=== PATIENT | female | born 1970 | race Caucasian/White ===

== ENCOUNTER 2023-02-14 06:58 | Observation (INO) ==
--- NOTE | 2023-01-17 11:33 | PAT Medication Instructions ---
Medication Instructions Date of Service January 17, 2023 Home Medications Medication Instructions Recorded albuterol sulfate 90 mcg/actuation 2 inh inhalation Q6H PRN shortness 08/29/20 aerosol inhaler of breath or wheezing #8.5 grams dicyclomine 20 mg tablet 20 mg PO BID #60 tabs 11/03/21 duloxetine 60 mg capsule,delayed 60 mg PO QAM #30 caps 07/19/22 release diclofenac sodium 75 mg 75 mg PO BID PRN pain #60 tabs 07/28/22 tablet,delayed release buspirone 10 mg tablet 10 mg PO BID #180 tabs 08/27/22 losartan 100 mg tablet 100 mg PO QAM #90 tabs 09/18/22 omeprazole 40 mg capsule,delayed See Rx Instructions .Route 10/19/22 release .COMPLEX #30 caps levothyroxine 50 mcg tablet See Rx Instructions .Route 10/28/22 .COMPLEX #30 tabs alprazolam 0.5 mg tablet 0.5 mg PO BID PRN anxiety #60 tabs 12/30/22 oxycodone-acetaminophen 5 mg-325 0.5 tab PO QID pain #60 tabs 12/30/22 mg tablet ferrous sulfate 325 mg (65 mg iron) tablet 325 mg PO BID albuterol sulfate 90 mcg/actuation aerosol inhaler 2 inh inhalation Q6H PRN shortness of breath or wheezing cholecalciferol (vitamin D3) 25 mcg (1,000 unit) tablet (Vitamin D3) 2,000 unit PO QAM dicyclomine 20 mg tablet 20 mg PO BID duloxetine 60 mg capsule,delayed release 60 mg PO QAM diclofenac sodium 75 mg tablet,delayed release 75 mg PO BID PRN pain buspirone 10 mg tablet 10 mg PO BID losartan 100 mg tablet 100 mg PO QAM omeprazole 40 mg capsule,delayed release See Rx Instructions .Route .COMPLEX levothyroxine 50 mcg tablet See Rx Instructions .Route .COMPLEX alprazolam 0.5 mg tablet 0.5 mg PO BID PRN anxiety oxycodone-acetaminophen 5 mg-325 mg tablet 0.5 tab PO QID pain bupropion HCl 300 mg 24 hr tablet, extended release 300 mg PO QAM hydrochlorothiazide 12.5 mg tablet 25 mg PO QAM mirabegron 25 mg tablet,extended release 24 hr (Myrbetriq) 25 mg PO QPM multivitamin (Multiple Vitamins tablet) 1 tab PO QAM norethindrone (contraceptive) 0.35 mg tablet 0.35 mg PO QAM ASK your surgeon for instructions diclofenac sodium 75 mg tablet,delayed release 75 mg PO BID PRN pain norethindrone (contraceptive) 0.35 mg tablet 0.35 mg PO QAM DO NOT take the morning of surgery ferrous sulfate 325 mg (65 mg iron) tablet 325 mg PO BID cholecalciferol (vitamin D3) 25 mcg (1,000 unit) tablet (Vitamin D3) 2,000 unit PO QAM dicyclomine 20 mg tablet 20 mg PO BID losartan 100 mg tablet 100 mg PO QAM hydrochlorothiazide 12.5 mg tablet 25 mg PO QAM multivitamin (Multiple Vitamins tablet) 1 tab PO QAM Take morning of surgery With a small sip of water, OTHERWISE NOTHING TO EAT OR DRINK AFTER MIDNIGHT: albuterol sulfate 90 mcg/actuation aerosol inhaler 2 inh inhalation Q6H PRN shortness of breath or wheezing (use if needed; please bring rescue inhaler with you to hospital day of surgery if possible) duloxetine 60 mg capsule,delayed release 60 mg PO QAM buspirone 10 mg tablet 10 mg PO BID omeprazole 40 mg capsule,delayed release See Rx Instructions .Route .COMPLEX levothyroxine 50 mcg tablet See Rx Instructions .Route .COMPLEX alprazolam 0.5 mg tablet 0.5 mg PO BID PRN anxiety (if needed) oxycodone-acetaminophen 5 mg-325 mg tablet 0.5 tab PO QID pain bupropion HCl 300 mg 24 hr tablet, extended release 300 mg PO QAM Take evening before surgery ferrous sulfate 325 mg (65 mg iron) tablet 325 mg PO BID albuterol sulfate 90 mcg/actuation aerosol inhaler 2 inh inhalation Q6H PRN shortness of breath or wheezing (if needed) dicyclomine 20 mg tablet 20 mg PO BID buspirone 10 mg tablet 10 mg PO BID alprazolam 0.5 mg tablet 0.5 mg PO BID PRN anxiety (if needed) oxycodone-acetaminophen 5 mg-325 mg tablet 0.5 tab PO QID pain mirabegron 25 mg tablet,extended release 24 hr (Myrbetriq) 25 mg PO QPM Other Notes If you have any questions please call us at [phone] or [phone] or [phone] or [phone]
--- NOTE | 2023-01-24 10:48 | Anesthesiology Consultation ---
Date of Service January 24, 2023 Assessment & Plan (1) Encounter for pre-operative examination: - COVID screening: Per assessment on 01/24: No known COVID-19 positive contacts or current COVID-19 related symptoms. Travel screen negative. Patient vaccinated. At surgeon discretion if preop Covid testing being done. - Outpatient joint assessment: Pt currently scheduled for inpatient pathway. If surgeon requests review for outpatient joint pathway, patient is not recommended candidate for outpatient joint program from anesthesia standpoint. Chart Review Chart Review: Acceptable Risk for Surgery and Patient seen in Pre Admission Testing Teaching & Discussion Pre-Anesthesia Teaching/Discussion Notes: Instructed NPO after midnight before surgery,except medications with 15 cc of water. Medication instructions provided according to the PAT guidelines. History Surgery Operation Date: 02/14/23 13:10 Proposed Procedures p Left Unicompartment Knee Arthroplasty versus - Mk Bright DO s Left Total Knee Arthroplasty - Mk Bright DO Height/Weight Height: 5 ft 2 in Weight: 76.6 kg Allergies Allergy/AdvReac Type Severity Reaction Status Date / Time nickel Allergy Intermediate swelling Verified 01/17/23 08:24 with earrings/redness and burning No Known Drug Allergies Allergy Verified 01/17/23 08:24 Medications Home Medications Medication Instructions Recorded Confirmed Last Taken ferrous sulfate 325 mg (65 mg 325 mg PO BID 06/17/20 01/17/23 Unknown iron) tablet albuterol sulfate 90 mcg/actuation 2 inh inhalation Q6H PRN shortness 08/29/20 01/17/23 Unknown aerosol inhaler of breath or wheezing #8.5 grams cholecalciferol (vitamin D3) 25 2,000 unit PO QAM 03/10/21 01/17/23 Unknown mcg (1,000 unit) tablet (Vitamin D3) dicyclomine 20 mg tablet 20 mg PO BID #60 tabs 11/03/21 01/17/23 Unknown buspirone 10 mg tablet 10 mg PO BID #180 tabs 08/27/22 01/17/23 Unknown losartan 100 mg tablet 100 mg PO QAM #90 tabs 09/18/22 01/17/23 Unknown omeprazole 40 mg capsule,delayed See Rx Instructions .Route 10/19/22 01/17/23 Unknown release .COMPLEX #30 caps levothyroxine 50 mcg tablet See Rx Instructions .Route 10/28/22 01/17/23 Unknown .COMPLEX #30 tabs alprazolam 0.5 mg tablet 0.5 mg PO BID PRN anxiety #60 tabs 12/30/22 01/17/23 Unknown oxycodone-acetaminophen 5 mg-325 0.5 tab PO QID pain #60 tabs 12/30/22 01/17/23 Unknown mg tablet bupropion HCl 300 mg 24 hr tablet, 300 mg PO QAM 01/17/23 01/17/23 Unknown extended release diclofenac sodium 75 mg 75 mg PO BID PRN pain #60 tabs 01/17/23 Unknown tablet,delayed release hydrochlorothiazide 12.5 mg tablet 25 mg PO QAM 01/17/23 01/17/23 Unknown mirabegron 25 mg tablet,extended 25 mg PO QPM 01/17/23 01/17/23 Unknown release 24 hr (Myrbetriq) multivitamin (Multiple Vitamins 1 tab PO QAM 01/17/23 01/17/23 Unknown tablet) norethindrone (contraceptive) 0.35 0.35 mg PO QAM 01/17/23 01/17/23 Unknown mg tablet B12 1 tab PO QAM 01/24/23 01/24/23 Unknown Probiotic 2 cap PO QAM 01/24/23 01/24/23 Unknown duloxetine 60 mg capsule,delayed 60 mg PO QAM #30 caps 01/24/23 Unknown release Past Medical History Medical History Acid reflux "Severe" LANA positive Anemia Anxiety Asthma Stable Chronic back pain SHIVANI III (cervical intraepithelial neoplasia grade III) with severe dysplasia DDD (degenerative disc disease), lumbar Depression with anxiety History of prediabetes "Lost greater than 50 pounds since" Hypertension Menorrhagia Migraine with aura Osteoarthritis Overactive bladder Pap smear of cervix with ASCUS, cannot exclude HGSIL Severe obstructive sleep apnea CPAP (non-compliant) Exercise / Class Metabolic Activity III < 4 Walking/Shop/Light housework (one FS (no CP, + SOB)) Past Family History Family History Mother Diabetes Hypertension Family history of reaction to anesthesia difficult waking Family hx colonic polyps Grandmother (Paternal) Breast cancer Aunt Breast cancer Maternal Other Ovarian cancer Denies family history of Prostate cancer Myocardial infarction Colorectal cancer Uterine cancer Past Surgical History Surgical History History of anesthesia reaction Slow to wake History of carpal tunnel surgery of right wrist History of colonoscopy History of colposcopy with cervical biopsy History of esophagogastroduodenoscopy (EGD) History of laminectomy History of loop electrical excision procedure (LEEP) 2006, CIN3 History of open reduction and internal fixation (ORIF) procedure Left ankle x2 (+ hardware) History of spinal fusion LUMBAR History of tonsillectomy and adenoidectomy History of tooth extraction Nausea and vomiting after administration of anesthetic agent Past Anesthesia History Other ("slow to wake") History of PONV History of PONV (PONV with single episode 20 years ago (spinal fusion), no issues with other surgeries/anesthesia) Social History Smoking Status: Current every day smoker tobacco type: cigarettes Smoking cigarettes per day: 10 cigs/day Do You Dip or Chew Tobacco: No Hx Alcohol Use: No substance use type: does not use Review of Systems Patient denies chest pain, shortness of breath, fever, chills, cough, wheezing, palpitations. Physical Exam Vital Signs VITALS BP 131/86 P 75 TEMP 98.5 SP02 99%RA RESP 16 PHYSICAL Full cervical extension range of motion. Full TMJ range of motion. TMD 3 finger breaths Mallampati Score 3 Dentition: Missing molar, patient reports still has some baby teeth Lungs: clear throughout to auscultation Cardiac: regular rate and rhythm, no murmurs noted Spine: normal Carotid arteries: negative bruit Extremities: left side ankle swelling (per patient, chronic issue s/p fracture repair/hardware) Lab Results Anesthesia Preop Results Results Anesthesia Widget: WBC 7.04 K/ul (4.8-10.8) 01/24/23 Hgb 13.3 g/dl (12.0-16.0) 01/24/23 Hct 38.6 % (37.0-47.0) 01/24/23 Plt 362 K/uL (130-400) 01/24/23 Na 135 mmol/L (136-145) L 01/24/23 K 4.3 mmol/L (3.5-5.1) 01/24/23 Cl 105 mmol/L (98-107) 01/24/23 CO2 26 mmol/L (21-32) 01/24/23 BUN 14 mg/dl (6-23) 01/24/23 Creat 0.78 mg/dl (0.6-1.2) 01/24/23 Glucose Level 78 mg/dl (70-99(Fasting)) 01/24/23 PT 10.6 Seconds (9.0-12.0) 01/24/23 PTT 29.3 Seconds (21.0-31.0) 01/24/23 INR 1.0 (0.9-1.1) 01/24/23 Blood Type O Positive 01/24/23 Antibody Screen NEGATIVE 01/24/23 Testing Electrocardiogram Date: 10/18/22 Findings: + NSR @ (78) Chest X-Ray Date: 10/18/22 FINDINGS: Cardiomediastinal and hilar silhouettes are within normal limits. No pneumothorax, pleural effusion, airspace consolidation or overt pulmonary edema. Degenerative changes of the shoulders and spine. IMPRESSION: No acute process. COVID-19 Risk Screen Screening Information COVID-19 Screen Date: 01/24/23 Exposure 21 Days Family/Household +COVID Last 21 Days: No Exposure 10 Days Any COVID Exposure Last 10 Days: No Symptoms Last 10 Days Experienced COVID Sx Last 10 Days: No + COVID 0-90 Days COVID + in Last 0-90 Days: No
--- NOTE | 2023-02-14 06:40 | History & Physical Bridge Note ---
Date of Service February 14, 2023 History & Physical Bridge Note I have examined the patient, reviewed the History & Physical and in the interval since the performance of the History & Physical I have noted the following changes of clinical significance: no changes noted
[~2023-02-14 06:58] MED LIST: BUPIVACAINE 0.25% PF 30 ML VIAL ONE; BUPIVACAINE 0.5 % 5 MG/1 ML PF 10ML VIAL ONE; DEXAMETHASONE SOD INJ 4 MG/ML VIAL ONE; EPINEPHrine INJ 1 MG/ML AMP ONE; FAMOTIDINE 20 MG TAB PO SCH; GABAPENTIN 600 MG DOSE PO SCH; LR 500ML BOLUS, THEN 15ML/HR IV SCH; LR 60ML/HR IV SCH; ORTHO JOINT MIX INFIL SCH; TRANEXAMIC ACID 1,000 MG **IV Intra-op IV SCH; TRANEXAMIC ACID 1,000 MG **IV Pre-op IV SCH; ceFAZolin 2000MG 2,000 MG/15 ML SYR IV SCH; dexAMETHasone 4 MG TAB PO SCH
--- NOTE | 2023-02-14 07:01 | History & Physical Report ---
Date of Service February 14, 2023 Assessment & Plan (1) Osteoarthritis of left knee: We will proceed with a left partial knee replacement surgery. Postoperatively she will be started on aspirin for DVT prophylaxis and will be part of her outpatient joint protocol. She will be discharged home on oral pain medicatio ns. She plans to use energy physical therapy upon discharge. History of Present Illness Chief Complaint: Osteoarthritis of the right knee. 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 She has been dealing with chronic bilateral knee pain. She has been treated by my partners. She has had multiple injections. She has had MRIs of her knee, which showed medial compartmental arthritis. She is now having instability of her knee. She wears a medial rn documentation specialist brace. After failing conservative treatment, she has elected proceed with a right partial knee replacement surgery. Allergies Allergy/AdvReac Type Severity Reaction Status Date / Time nickel Allergy Intermediate swelling Verified 02/07/23 14:57 with earrings/redness and burning No Known Drug Allergies Allergy Verified 02/07/23 14:57 Home Medications Medication Instructions Recorded Confirmed Type ferrous sulfate 325 mg (65 mg 325 mg PO BID 06/17/20 02/07/23 History iron) tablet albuterol sulfate 90 mcg/actuation 2 inh inhalation Q6H PRN shortness 08/29/20 02/07/23 Rx aerosol inhaler of breath or wheezing #8.5 grams cholecalciferol (vitamin D3) 25 2,000 unit PO QAM 03/10/21 02/07/23 History mcg (1,000 unit) tablet (Vitamin D3) buspirone 10 mg tablet 10 mg PO BID #180 tabs 08/27/22 02/07/23 Rx losartan 100 mg tablet 100 mg PO QAM #90 tabs 09/18/22 02/07/23 Rx omeprazole 40 mg capsule,delayed See Rx Instructions .Route 10/19/22 02/07/23 Rx release .COMPLEX #30 caps levothyroxine 50 mcg tablet See Rx Instructions .Route 10/28/22 02/07/23 Rx .COMPLEX #30 tabs diclofenac sodium 75 mg 75 mg PO BID PRN pain #60 tabs 01/17/23 02/07/23 Rx tablet,delayed release hydrochlorothiazide 12.5 mg tablet 25 mg PO QAM 01/17/23 02/07/23 History mirabegron 25 mg tablet,extended 25 mg PO QPM 01/17/23 02/07/23 History release 24 hr (Myrbetriq) multivitamin (Multiple Vitamins 1 tab PO QAM 01/17/23 02/07/23 History tablet) norethindrone (contraceptive) 0.35 0.35 mg PO QAM 01/17/23 02/07/23 History mg tablet B12 1 tab PO QAM 01/24/23 02/07/23 History Probiotic 2 cap PO QAM 01/24/23 02/07/23 History duloxetine 60 mg capsule,delayed 60 mg PO QAM #30 caps 01/24/23 02/07/23 Rx release bupropion HCl 300 mg 24 hr tablet, 300 mg PO QAM #30 tabs 01/25/23 02/07/23 Rx extended release alprazolam 0.5 mg tablet 0.5 mg PO BID PRN anxiety #60 tabs 02/02/23 02/07/23 Rx oxycodone-acetaminophen 5 mg-325 0.5 tab PO QID pain #60 tabs 02/02/23 02/07/23 Rx mg tablet dicyclomine 20 mg tablet 20 mg PO BID PRN 02/07/23 History Past Med/Surg History Medical History Acid reflux "Severe" LANA positive Anemia Anxiety Asthma Stable Chronic back pain SHIVANI III (cervical intraepithelial neoplasia grade III) with severe dysplasia DDD (degenerative disc disease), lumbar Depression with anxiety History of prediabetes "Lost greater than 50 pounds since" Hypertension Menorrhagia Migraine with aura Osteoarthritis Overactive bladder Pap smear of cervix with ASCUS, cannot exclude HGSIL Severe obstructive sleep apnea CPAP (non-compliant) Surgical History History of anesthesia reaction Slow to wake History of carpal tunnel surgery of right wrist History of colonoscopy History of colposcopy with cervical biopsy History of esophagogastroduodenoscopy (EGD) History of laminectomy History of loop electrical excision procedure (LEEP) 2006, CIN3 History of open reduction and internal fixation (ORIF) procedure Left ankle x2 (+ hardware) History of spinal fusion LUMBAR History of tonsillectomy and adenoidectomy History of tooth extraction Nausea and vomiting after administration of anesthetic agent Family History Mother Diabetes Hypertension Family history of reaction to anesthesia difficult waking Family hx colonic polyps Grandmother (Paternal) Breast cancer Aunt Breast cancer Maternal Other Ovarian cancer Denies family history of Prostate cancer Myocardial infarction Colorectal cancer Uterine cancer Social History Smoking Status: Current every day smoker Age Started Using Tobacco: 25; packs per day: 1; Cigarettes Per Day: 10 cigs/day; Second Hand Exposure: Yes (stepfather smoked); Do You Dip or Chew Tobacco: No; Hx Alcohol Use: No Preferred Language: Panamanian Communication Ability: Effective Visual Impairment: No Limitations Hearing Ability: Normal Commercial Pilot Required: No Beliefs That Will Affect Care: Taoist Taoist Beliefs: RASTAFARI marital status: Single Current Living Situation: Family Current Living Situation Comment: WITH SON current occupational status: unemployed Feels Safe at Home: Yes Safety Concerns: Feels Safe At This Time Childhood Exposure to Second-Hand Smoke: Yes Diet: regular Dental Care, Regularly: No Physical Activity Frequency: Does not Exercise Seatbelt Use: always Sunscreen Use: Yes Assistive Devices: Cane and Glasses Review of Systems All systems reviewed & are unremarkable except as noted in HPI & below. Physical Exam On physical examination the right knee, she has pain of the distal medial femoral condyle and over the medial joint line.. Constitutional WD/WN, vitals as above Eyes PERRL, conjunctivae normal, anicteric sclerae ENMT external ear and nose normal, oropharynx normal Neck trachea midline, no thyromegaly Respiratory normal respiratory effort, lungs clear to auscultation Cardiovascular RRR, no murmur, no edema Gastrointestinal (Abdomen) normal bowel sounds, soft, nontender, no hepatosplenomegaly Skin no rashes, warm and dry Psychiatric A+Ox3, euthymic affect Results & Data Results & Data Laboratory Results . Diagnostic Findings X-rays of the right knee show advanced osteoarthritis with joint space narrowing, osteophyte formation, and [id number] articulation. PG Care Time/CCT Total # of Minutes Spent Total Time Spent with Patient: Total time spent is greater than 50% in coordination of care (as documented) at patient's floor/unit and/or counseling patient: Coding Level of Care Code None Diagnoses Osteoarthritis of left knee M17.12
[2023-02-14] MEDS ORDERED: ONDANSETRON INJ 2 MG/ML 2 ML VIAL IV PRN ×2 (07:41→12:04)
[2023-02-14] MEDS ORDERED: ATROPINE SULFATE 0.1 MG/ML 10ML SYR IV PRN (07:41)
[2023-02-14] MEDS ORDERED: fentaNYL citrate PF 100 MCG/2 ML VIAL IV PRN (07:41)
[2023-02-14] MEDS ORDERED: PROMETHAZINE HCL 6.25 MG in SODIUM CHLORIDE 0.9% 50 ML IV PRN (07:41)
[2023-02-14] MEDS ORDERED: ePHEDrine sulfate 50 MG/ML AMP IV PRN (07:41)
[2023-02-14] MEDS ORDERED: MIDAZOLAM HCL 1 MG/ML 2ML VIAL ONE ×2 (08:17)
[2023-02-14] MEDS ORDERED: fentaNYL citrate PF 100 MCG/2 ML VIAL ONE (08:17)
[2023-02-14] MEDS ORDERED: PROPOFOL IV EMULSION 10 MG/ML 20 ML VIAL IV ONE ×2 (08:19→10:45)
[2023-02-14] MEDS ORDERED: ONDANSETRON INJ 2 MG/ML 2 ML VIAL ONE (08:19)
[2023-02-14] MEDS ORDERED: ORTHO JOINT ANESTHETIC ONE (09:28)
--- NOTE | 2023-02-14 10:57 | Operative Report ---
PG Post Operative Report Pre & Post Diagnosis Operation Date: 02/14/23 09:20 Pre-Op Diagnosis: Degenerative Joint Disease Left Knee Post-Op Diagnosis: Degenerative Joint Disease Left Knee I identified the patient and participated in the time-out.: Yes Procedure Operation Date: 02/14/23 09:20 Actual Procedures p Left Unicompartment Knee Arthroplasty(Left) - Mk Bright DO Surgeon Mk Bright DO Terminologist Mk Choi PA-C Estimated Blood Loss 20 Findings Consistent with Post-Op Diagnosis Specimens Left femoral tibial bone Description of Procedure On February 14, 2023 Christi arrived at [facility] for the above procedure. She was seen in the preoperative holding area and the operative extremity was identified and signed. She is given a preoperative antibiotic and a spinal anesthetic. She was taken back to the operative room and laid on the table in supine position. She was given basic sedation. The left knee was prepped and draped in sterile fashion. A timeout was done. The patient and the operative extremity was properly identified. A midline incision was made just medial to the patella. Dissection was taken down through the fascia. A small mid vastus arthrotomy was used. The medial retinaculum was released. There was some grade 2 chondral changes in the trochlea. The lateral compartment looked fine. The ACL was intact. A decision was made to do a partial knee replacement surgery. The proximal tibia was exposed. A proximal tibial cutting guide was placed. About 6 mm was resected off the tibial plateau. The knee was then brought down to full extension. A distal femoral cutting block was placed. The distal femur was then resected. The distal femur was then exposed. The measured be a size 4. A size 4 cutting block was then pinned in place. Posterior and chamfer cuts were then made. The peg holes were drilled. The tibia was then exposed. The tibia measured to be a size C. The keel peg was impacted. 2 peg holes were then drilled. A trial femoral component was then placed. An 11 mm polyethylene insert was then snapped into place. The knee was brought through full range of motion and felt to be stable. All trial components were then removed. The final Anna persona size 4 femoral component was then cemented in the place. The size C tibial component was cemented into place. A size 11 mm polyethylene insert was snapped into place. Once cement had dried, the knee was brought through full range of motion and felt to be stable. The wound was then irrigated. The surrounding soft tissues were injected with an orthopedic pain control cocktail. The extensor mechanism was closed with #1 Vicryl. Skin was closed with 2-0 Vicryl, 3-0 VLock suture, and antelmo. She was then placed in a soft compressive dressing. She was then transferred to a hospital bed. She was taken to the postanesthesia care unit in stable condition. She tolerated the procedure well. Mk Choi PA-C, was present for the entire procedure. He was critical for patient positioning, prepping, draping, retraction exposure, wound closure and application of sterile dressing. I attest to the content of the Intraoperative Record and any orders documented therein. Any exceptions are noted below.
--- NOTE | 2023-02-14 11:49 | XRay Report ---
TWO VIEWS LEFT KNEE CLINICAL HISTORY: Postoperative examination. FINDINGS: AP and crosstable lateral portable views of the left knee are obtained. A hemiarthroplasty in the medial compartment of the left knee is in near anatomic alignment. No acute fracture is seen. There are expected postoperative changes around the knee including skin clips, soft tissue edema, and subcutaneous gas. IMPRESSION: Expected postoperative changes status post left knee hemiarthroplasty. No acute fracture is seen. ACT 112: Negative or not required by law. Electronically signed by: Neftaly Shen M.D. 02/14/2023 11:47 AM
--- NOTE | 2023-02-14 11:51 | Anesthesiology Progress Note ---
Date of Service February 14, 2023 Anesthesia Post Procedure Vital Signs Vital Signs: Temp Pulse Pulse Resp BP Pulse Ox O2 Del Method 02/14/23 11:40 36.8 C 75 18 119/63 97 Room Air 02/14/23 11:30 75 13 107/70 98 Room Air 02/14/23 11:20 73 16 115/66 96 Oxymask 02/14/23 11:13 36.5 C 76 12 106/64 99 Oxymask 02/14/23 07:28 36.9 C 86 18 126/73 97 Room Air O2 Flow Rate 02/14/23 11:40 02/14/23 11:30 02/14/23 11:20 5 02/14/23 11:13 5 02/14/23 07:28 Transfer of Care Handoff Completed per policy Notes Mental Status: alert / awake / arousable Patient Amnestic to Procedure: Yes Nausea / Vomiting: adequately controlled Pain: adequately controlled Airway Patency, RR, SpO2: stable & adequate BP & HR: stable & adequate Hydration State: stable & adequate Neuraxial Anesthesia: was administered and sensory block is resolving Anesthetic Complications: no major complications apparent and Pt Satisfied with anesthetic care
[2023-02-14] MEDS ORDERED: NALOXONE HCL 0.4 MG/1 ML VIAL/CARP IV PRN (12:04)
[2023-02-14] MEDS ORDERED: MAGNESIUM HYDROXIDE SUSP 30 ML UDC PO PRN (12:04)
[2023-02-14] MEDS ORDERED: HYDROmorphone INJ 0.5 MG/0.5 ML SYR IV PRN (12:04)
[2023-02-14] MEDS ORDERED: bisacodyL 10 MG SUPP PR PRN (12:04)
[2023-02-14] MEDS ORDERED: METOCLOPRAMIDE HCL INJ 5 MG/ML 2 ML VIAL IV PRN (12:04)
[2023-02-14] MEDS ORDERED: ALBUTEROL HFA 8 GM INHALER INH PRN (12:04)
[2023-02-14] MEDS ORDERED: DICYCLOMINE HCL 20 MG TAB PO PRN (12:04)
[2023-02-14] MEDS: oxyCODONE HCL IR 5 MG TAB (IMMEDIATE RELEASE) PO PRN ×2 (13:16→20:46)
[2023-02-14] MEDS: SODIUM CHLORIDE 0.9% 1000ML 1,000 ML IV SCH (13:28)
[2023-02-14] MEDS: KETOROLAC 30 MG/ML VIAL IV SCH ×2 (14:00→18:09)
[2023-02-14] MEDS: ACETAMINOPHEN 500 MG TAB PO SCH ×2 (14:17→20:51)
[2023-02-14] MEDS: ceFAZolin 2000MG 2,000 MG/15 ML SYR IV SCH (18:05)
[2023-02-14] MEDS: ALPRAZolam 0.5 MG TABLET PO PRN (18:31)
[2023-02-14] MEDS: busPIRone 5 MG TAB PO SCH (20:47)
[2023-02-14] MEDS: ASPIRIN 81 MG ECTAB PO SCH (20:48)
[2023-02-14] MEDS: DOCUSATE SODIUM 100 MG CAP PO SCH (20:49)
[2023-02-14] MEDS ORDERED: SENNA 8.6 MG TAB PO SCH (21:00)
[2023-02-14] MEDS ORDERED: MIRABEGRON ER 25 MG TAB PO SCH (21:00)
[2023-02-15] MEDS: KETOROLAC 30 MG/ML VIAL IV SCH ×2 (00:25→05:58)
[2023-02-15] MEDS: ceFAZolin 2000MG 2,000 MG/15 ML SYR IV SCH (00:25)
[2023-02-15] MEDS: SODIUM CHLORIDE 0.9% 1000ML 1,000 ML IV SCH (00:37)
[2023-02-15] MEDS: ACETAMINOPHEN 500 MG TAB PO SCH (05:56)
[2023-02-15] MEDS: oxyCODONE HCL IR 5 MG TAB (IMMEDIATE RELEASE) PO PRN (06:02)
[2023-02-15] MEDS ORDERED: LEVOTHYROXINE SODIUM 50 MCG TABLET PO SCH (06:30)
--- NOTE | 2023-02-15 06:41 | Orthopedic Progress Note ---
Date of Service February 15, 2023 Assessment & Plan (1) Status post left partial knee replacement: Overall she is doing very well. She is having much pain in the left knee. She will be seen by physical therapy today for ambulation and range of motion exercises. She can be discharged home later today. She will follow-up with orthopedics in 2 weeks. Sima Barraza was seen and examined at bedside this morning. Overall she is doing fairly well. She is having much pain in the left knee. She has been up and ambulating to the bathroom. She has no complaints.. Review of Systems All systems reviewed & are unremarkable except as noted in HPI & below. Physical Exam On physical examination of the left knee, the dressing is clean and dry. Her leg is out in full extension. She has active dorsiflexion plantarflexion of her left ankle.. Results & Data Results & Data Laboratory Results . Diagnostic Findings Postoperative x-rays of the left knee show the prosthesis to be in anatomic alignment without any evidence of fracture, dislocation, or loosening. PG Care Time/CCT Total # of Minutes Spent Total Time Spent with Patient: Total time spent is greater than 50% in coordination of care (as documented) at patient's floor/unit and/or counseling patient: Coding Level of Care Code 73255 Post Operative Follow-Up Diagnoses Status post left partial knee replacement Z96.652
--- NOTE | 2023-02-15 06:42 | Discharge Summary ---
Date of Service February 15, 2023 Admission HPI (Per Admitting) Christi is a pleasant 52-year-old female, who is a hairdresser. She has been dealing with chronic bilateral knee pain. She has been treated by my partners. She has had multiple injections. She has had MRIs of her knee, which showed medial compartmental arthritis. She is now having instability of her knee. She wears a medial inner tube cutter brace. After failing conservative treatment, she has elected proceed with a right partial knee replacement surgery. Admission Exam (Per Admitting) On physical examination the right knee, she has pain of the distal medial femoral condyle and over the medial joint line.. Principal Diagnosis Same as "Discharge Diagnosis" noted below under Discharge Instructions. Discharge Exam On physical examination of the left knee, the dressing is clean and dry. Her leg is out in full extension. She has active dorsiflexion plantarflexion of her left ankle.. Discharge Data Procedures Performed Operation Date: 02/14/23 09:20 Actual Procedures p Left Unicompartment Knee Arthroplasty(Left) - Mk Bright DO Ordered Studies 02/14/23 05:00 US - OR guided needle placemen Routine Hospital Course (1) Status post left partial knee replacement: February 14, 2023 Christi arrived at [facility] and underwent a left partial knee replacement without complication. She had a spinal anesthetic. Postoperatively she was started on aspirin for DVT prophylaxis and transferred to the general orthopedic floors. Her hospital course was uneventful. On postop day #1, her vital signs were stable and her pain was well controlled. She was able to participate well with physical therapy doing ambulation and range of motion exercises. She was then discharged home. She will follow-up with orthopedics in 2 weeks. PG Care Time/CCT Total # of Minutes Spent Total Time Spent with Patient: Total time spent is greater than 50% in coordination of care (as documented) at patient's floor/unit and/or counseling patient: Discharge Plan Discharge Items Patient Disposition: Home - Home Health Services Reason For Visit: Degenerative Joint Disease Left Knee Discharge Diagnosis: Left knee replacement Activity: As commented below Non-emergency contact: Surgeon Call non-emergency contact if: your wound has increased redness and your wound has increased drainage Follow-up/Referrals: Mary Carmen Siddiqui MD [Primary Care Provider] - Diet: Regular Addtl Attending Provider Instructions: Activity and Therapy Recommendations: * If you are using [facility] then therapy will be provided at your home until they feel you have accomplished all of your goals. * If you are using [facility] then Physical Therapy will be provided until they feel you are ready to start Outpatient Physical Therapy. * If you are not using home therapy then Outpatient Physical Therapy should start about 3-5 days from your day of surgery. Therapy will last about 6-10 weeks * It is important not to put a pillow under your knee when you are relaxing or sleeping. It is just as important to make sure you are getting your knee perfectly straight as it is to regain your knee bend. * You were shown a series of exercises in the hospital. Do these exercises three times each day including the exercises you were shown in physical therapy. * Get up and walk several times each day. For the first four weeks, try not to stand or walk for more than one hour at a time. If you do stand or walk for more than one hour, you will not hurt anything, but your leg will likely swell. * As you feel comfortable, you may change from the walker or crutches to a cane and then to independent walking. Medications: * Narcotic You will likely be sent home from the hospital with a prescription for the narcotic pain medication that worked best throughout your stay. * Aspirin Most patients will be required to take Aspirin 81mg twice a day for 6 weeks after surgery. This is obtained [id number] and a prescription is not necessary. * Other medications may be prescribed for specific circumstances. If you have any questions, please call the office at . * Resume previous home medications unless otherwise instructed TEDs/Elastic Stockings: The white elastic stockings help limit swelling and prevent blood clots from forming in your legs.~ The more you wear them, the more they work. Wear them for six weeks. Dressing Care: The dressing can be changed after physical therapy on postop day #1. Daily dry dressing changes for a few days, especially if the incision is still draining some. If the incision is not draining then you may leave the antelmo open to air. If there is a little bit of drainage or if the antelmo are getting stuck on your clothing then cover the incision with a dry dressing. The antelmo will be removed at your 2 week follow-up appointment. Showering: You may shower 5 days from the day of surgery as long as the incision is no longer draining. You may shower with the antelmo exposed. Let soapy water run over the antelmo and pat them dry. Do not scrub or soak the incision. Things To Watch For: * Drainage from the incision site that occurs more than one week after your surgery. * Increased redness at the incision site. * Fever above 102 degrees Fahrenheit. * Unusual chest pain or shortness of breath. * Call [facility] at with any of the above problems Follow-Up Visit: Follow-up with Dr. Bright's PA (Mk Choi) 2-3 weeks after your day of surgery. He will remove your antelmo and answer any questions. If you have any additional questions or concerns, Dr Bright is usually in the office at the same time and will be available An appointment was probably scheduled when you signed-up for surgery in the office. If you have any questions call Office Instructions: More detailed instructions as well as Frequently Asked Questions were provided in a folder by our office when you signed-up for surgery. Please review these instructions when you get home. If you have any further questions or concerns, please feel free to call the office at [phone] Pending Studies at Discharge: No Stand-Alone Forms: My [facility], Smoking Cessation Medications and DC Order Prescriptions: New aspirin 81 mg Tablet,Delayed Release (Dr/Ec) 81 mg PO BID 42 Days Qty: 84 0RF oxycodone-acetaminophen 5-325 mg tablet 1 tab PO Q6H PRN (Reason: pain) Qty: 30 0RF Continued albuterol sulfate 90 mcg/actuation HFA aerosol inhaler 2 inh inhalation Q6H PRN (Reason: shortness of breath or wheezing) Qty: 8.5 3RF buspirone 10 mg tablet 10 mg PO BID Qty: 180 1RF losartan 100 mg tablet 100 mg PO QAM Qty: 90 1RF omeprazole 40 mg capsule,delayed release(DR/EC) See Rx Instructions .ROUTE .COMPLEX Qty: 30 5RF Dose Instruction: TAKE ONE CAPSULE BY MOUTH EVERY DAY Patient Comments: QAM Rx Instructions: TAKE ONE CAPSULE BY MOUTH EVERY DAY levothyroxine 50 mcg tablet See Rx Instructions .ROUTE .COMPLEX Qty: 30 5RF Dose Instruction: TAKE ONE TABLET BY MOUTH EVERY DAY Patient Comments: QAM Rx Instructions: TAKE ONE TABLET BY MOUTH EVERY DAY diclofenac sodium 75 mg tablet,delayed release (DR/EC) 75 mg PO BID PRN (Reason: pain) Qty: 60 5RF duloxetine 60 mg capsule,delayed release(DR/EC) 60 mg PO QAM Qty: 30 11RF bupropion HCl 300 mg tablet extended release 24 hr 300 mg PO QAM Qty: 30 5RF alprazolam 0.5 mg tablet 0.5 mg PO BID PRN (Reason: anxiety) Qty: 60 0RF Rx Instructions: PDMP-Last filled on 12/31/2022 # 60 cholecalciferol (vitamin D3) [Vitamin D3] 25 mcg (1,000 unit) tablet 2,000 unit PO QAM dicyclomine 20 mg tablet 20 mg PO BID PRN (Reason: Gastrointestinal Spasms Or Cramping) Patient Comments: TAKES PRN ABDOMINAL PAIN ferrous sulfate 325 mg (65 mg iron) Tablet 325 mg PO DAILY multivitamin [Multiple Vitamins] Tablet 1 tab PO QAM norethindrone (contraceptive) 0.35 mg tablet 0.35 mg PO QAM Rx Instructions: Take one pill daily at same time each day. Use backup if taken >3hrs late hydrochlorothiazide 12.5 mg tablet 25 mg PO QAM Myrbetriq 25 mg tablet extended release 24 hr 25 mg PO QPM B12 1 tab PO QAM Probiotic 2 cap PO QAM Discontinued oxycodone-acetaminophen 5-325 mg tablet 0.5 tab PO QID Qty: 60 0RF Rx Instructions: PDMP-Last filled on 12/31/2022 #60 Admission Data Admit Date/Time: 02/14/23 11:15 Attending Provider: Mk Bright Admit Provider: Mk Bright Primary Care Provider: Mary Carmen Siddiqui
[2023-02-15] MEDS ORDERED: dexAMETHasone 4 MG TAB PO SCH (08:00)
[2023-02-15] MEDS ORDERED: DULoxetine HCL 60 MG CAP PO SCH (09:00)
[2023-02-15] MEDS ORDERED: MULTIVITAMIN TAB PO SCH (09:00)
[2023-02-15] MEDS ORDERED: buPROPion XL 300 MG TABCR PO SCH (09:00)
[2023-02-15] MEDS ORDERED: LOSARTAN POTASSIUM 50 MG TAB PO SCH (09:00)
[2023-02-15] MEDS ORDERED: hydroCHLOROthiazide 25 MG TAB PO SCH (09:00)
[2023-02-15] MEDS ORDERED: PNEUMOCOCCAL Polysaccharide Vaccine 25mcg/0.5mL vial/Syr IM ONE ×2 (09:00→21:45)
[2023-02-15] MEDS: busPIRone 5 MG TAB PO SCH (09:10)
[2023-02-15] MEDS: DOCUSATE SODIUM 100 MG CAP PO SCH (09:11)
[2023-02-15] MEDS: ASPIRIN 81 MG ECTAB PO SCH (09:11)
[2023-02-15] MEDS: ALPRAZolam 0.5 MG TABLET PO PRN (09:19)
[2023-02-15] MEDS ORDERED: FERROUS SULFATE 325 MG TAB PO SCH (11:30)
== END 2023-02-15 11:24 | disposition home health service (06) ==
LOC: 3E 06:58 → ASU 06:58

== ENCOUNTER 2025-03-04 10:52 | Inpatient (IN) ==
--- NOTE | 2025-01-29 12:46 | PAT Medication Instructions ---
Medication Instructions Date of Service January 29, 2025 Home Medications Medication Instructions Recorded albuterol sulfate 90 mcg/actuation 2 inh inhalation Q6H PRN shortness 08/29/20 aerosol inhaler of breath or wheezing #8.5 grams diclofenac sodium 75 mg 75 mg PO BID PRN pain #60 tabs 01/24/24 tablet,delayed release bupropion HCl 150 mg 24 hr tablet, 150 mg PO QAM #90 tabs 06/06/24 extended release triamcinolone acetonide 0.1 % 1 applic topical BID #15 grams 06/25/24 topical cream duloxetine 60 mg capsule,delayed 60 mg PO QAM #30 caps 07/27/24 release potassium chloride 10 mEq See Rx Instructions .Route 09/10/24 capsule,extended release .COMPLEX #60 caps mirabegron 50 mg tablet,extended See Rx Instructions .Route 10/05/24 release 24 hr (Myrbetriq) .COMPLEX #90 tabs norethindrone (contraceptive) 0.35 0.35 mg PO QAM #84 tabs 10/12/24 mg tablet levothyroxine 50 mcg tablet See Rx Instructions .Route 10/29/24 .COMPLEX #30 tabs omeprazole 40 mg capsule,delayed See Rx Instructions .Route 11/19/24 release .COMPLEX #30 caps losartan 25 mg tablet 25 mg PO QAM #90 tabs 01/07/25 tirzepatide (weight loss) 2.5 2.5 mg (0.5 mL) subcut Q7D #2 mL 01/14/25 mg/0.5 mL subcutaneous pen injector buspirone 10 mg tablet 10 mg PO BID #180 tabs 01/21/25 oxycodone-acetaminophen 5 mg-325 1 tab PO TID PRN pain #70 tabs 01/27/25 mg tablet (Percocet) alprazolam 0.5 mg tablet 0.5 mg PO TID anxiety #90 tabs 01/28/25 ferrous sulfate 325 mg (65 mg iron) tablet 325 mg PO QAM albuterol sulfate 90 mcg/actuation aerosol inhaler 2 inh inhalation Q6H PRN shortness of breath or wheezing multivitamin (Multiple Vitamins tablet) 1 tab PO QAM Probiotic 2 cap PO QAM diclofenac sodium 75 mg tablet,delayed release 75 mg PO BID PRN pain bupropion HCl 150 mg 24 hr tablet, extended release 150 mg PO QAM triamcinolone acetonide 0.1 % topical cream 1 applic topical BID duloxetine 60 mg capsule,delayed release 60 mg PO QAM potassium chloride 10 mEq capsule,extended release See Rx Instructions .Route .COMPLEX mirabegron 50 mg tablet,extended release 24 hr (Myrbetriq) See Rx Instructions .Route .COMPLEX norethindrone (contraceptive) 0.35 mg tablet 0.35 mg PO QAM levothyroxine 50 mcg tablet See Rx Instructions .Route .COMPLEX omeprazole 40 mg capsule,delayed release See Rx Instructions .Route .COMPLEX losartan 25 mg tablet 25 mg PO QAM tirzepatide (weight loss) 2.5 mg/0.5 mL subcutaneous pen injector 2.5 mg (0.5 mL) subcut Q7D buspirone 10 mg tablet 10 mg PO BID cholecalciferol (vitamin D3) 125 mcg (5,000 unit) tablet (Vitamin D3) 125 mcg PO QAM oxycodone-acetaminophen 5 mg-325 mg tablet (Percocet) 1 tab PO TID PRN pain alprazolam 0.5 mg tablet 0.5 mg PO TID anxiety ASK your surgeon for instructions diclofenac sodium 75 mg tablet,delayed release 75 mg PO BID PRN pain STOP 7 days prior to surgery tirzepatide (weight loss) 2.5 mg/0.5 mL subcutaneous pen injector 2.5 mg (0.5 mL) subcut Q7D ASK your prescriber and surgeon norethindrone (contraceptive) 0.35 mg tablet 0.35 mg PO QAM STOP taking 24 hours before surgery triamcinolone acetonide 0.1 % topical cream 1 applic topical BID DO NOT take the morning of surgery ferrous sulfate 325 mg (65 mg iron) tablet 325 mg PO QAM multivitamin (Multiple Vitamins tablet) 1 tab PO QAM Probiotic 2 cap PO QAM potassium chloride 10 mEq capsule,extended release See Rx Instructions .Route .COMPLEX losartan 25 mg tablet 25 mg PO QAM cholecalciferol (vitamin D3) 125 mcg (5,000 unit) tablet (Vitamin D3) 125 mcg PO QAM Take morning of surgery With a small sip of water, OTHERWISE NOTHING TO EAT OR DRINK AFTER MIDNIGHT: albuterol sulfate 90 mcg/actuation aerosol inhaler 2 inh inhalation Q6H PRN shortness of breath or wheezing (use if needed; please bring rescue inhaler with you to hospital day of surgery if possible) bupropion HCl 150 mg 24 hr tablet, extended release 150 mg PO QAM duloxetine 60 mg capsule,delayed release 60 mg PO QAM levothyroxine 50 mcg tablet See Rx Instructions .Route .COMPLEX omeprazole 40 mg capsule,delayed release See Rx Instructions .Route .COMPLEX buspirone 10 mg tablet 10 mg PO BID oxycodone-acetaminophen 5 mg-325 mg tablet (Percocet) 1 tab PO TID PRN pain (if needed) alprazolam 0.5 mg tablet 0.5 mg PO TID anxiety Take evening before surgery albuterol sulfate 90 mcg/actuation aerosol inhaler 2 inh inhalation Q6H PRN shortness of breath or wheezing (if needed) mirabegron 50 mg tablet,extended release 24 hr (Myrbetriq) See Rx Instructions .Route .COMPLEX buspirone 10 mg tablet 10 mg PO BID oxycodone-acetaminophen 5 mg-325 mg tablet (Percocet) 1 tab PO TID PRN pain (if needed) alprazolam 0.5 mg tablet 0.5 mg PO TID anxiety Other Notes If you have any questions please call us at [phone] or [phone] or [phone] or [phone]
--- NOTE | 2025-02-05 15:00 | Anesthesiology Consultation ---
Date of Service February 05, 2025 Assessment & Plan (1) Encounter for pre-operative examination: Plan - awaiting [place] PCP evaluation prior to surgery. - hot flashes over the past month, increasing anxiety, irritability, intermittent tearfulness, sleep disturbances, waking sweating, dizziness with positional [id number]-states she checked her BP when dizzy and it was normal. Denies SI or HI. Denies recent travel, unintentional weight loss or cough. She states is wondering if she is going through menopause. I ordered TSH and free T4, advised she needs to remain in communication with her PCP and [facility]. I also sent a workload note. She requested both providers be made aware, workload note sent to [place] PCP and [facility]. I discussed case in detail with Dr. Alejandra who advised patient have a [place] PCP clearance/evaluation prior to surgery. I notified patient who states that she is also having muscle cramping in legs and arms. I advised workload note was sent to Dr. Siddiqui, advised she contact PCP as well. Surgeon's office made aware. Chart Review Chart Review: Pending: Refer to Additional Notes / Consult section and Patient seen in Pre Admission Testing Teaching & Discussion Pre-Anesthesia Teaching/Discussion Notes: Instructed NPO after midnight before surgery, except medications with 15 cc of water. Medication instructions provided according to the PAT guidelines. History Surgery Operation Date: 03/04/25 12:00 Proposed Procedures p Revision Left Unicompartment Knee Arthroplasty to Left Total Knee Arthroplasty - Mk Bright, DO Height/Weight Height: 5 ft 2 in Weight: 55.6 kg Allergies Allergy/AdvReac Type Severity Reaction Status Date / Time nickel Allergy Intermediate Swelling Verified 01/30/25 14:29 with earrings/redness and burning No Known Drug Allergies Allergy Verified 01/23/25 15:27 Medications Home Medications Medication Instructions Recorded Confirmed Last Taken ferrous sulfate 325 mg (65 mg 325 mg PO QAM 06/17/20 01/23/25 02/12/23 08:00 iron) tablet albuterol sulfate 90 mcg/actuation 2 inh inhalation Q6H PRN shortness 08/29/20 01/23/25 Unknown aerosol inhaler of breath or wheezing #8.5 grams multivitamin (Multiple Vitamins 1 tab PO QAM 01/17/23 01/23/25 02/12/23 08:00 tablet) Probiotic 2 cap PO QAM 01/24/23 01/23/25 02/12/23 08:00 diclofenac sodium 75 mg 75 mg PO BID PRN pain #60 tabs 01/24/24 01/23/25 Unknown tablet,delayed release bupropion HCl 150 mg 24 hr tablet, 150 mg PO QAM #90 tabs 06/06/24 01/23/25 Unknown extended release triamcinolone acetonide 0.1 % 1 applic topical BID #15 grams 06/25/24 01/07/25 Unknown topical cream duloxetine 60 mg capsule,delayed 60 mg PO QAM #30 caps 07/27/24 01/23/25 Unknown release potassium chloride 10 mEq See Rx Instructions .Route 09/10/24 01/23/25 Unknown capsule,extended release .COMPLEX #60 caps mirabegron 50 mg tablet,extended See Rx Instructions .Route 10/05/24 01/23/25 Unknown release 24 hr (Myrbetriq) .COMPLEX #90 tabs norethindrone (contraceptive) 0.35 0.35 mg PO QAM #84 tabs 10/12/24 01/23/25 Unknown mg tablet levothyroxine 50 mcg tablet See Rx Instructions .Route 10/29/24 01/23/25 Unknown .COMPLEX #30 tabs omeprazole 40 mg capsule,delayed See Rx Instructions .Route 11/19/24 01/23/25 Unknown release .COMPLEX #30 caps losartan 25 mg tablet 25 mg PO QAM #90 tabs 01/07/25 01/23/25 Unknown tirzepatide (weight loss) 2.5 2.5 mg (0.5 mL) subcut Q7D #2 mL 01/14/25 01/23/25 Unknown mg/0.5 mL subcutaneous pen injector buspirone 10 mg tablet 10 mg PO BID #180 tabs 01/21/25 01/23/25 Unknown cholecalciferol (vitamin D3) 125 125 mcg PO QAM 01/23/25 01/23/25 Unknown mcg (5,000 unit) tablet (Vitamin D3) oxycodone-acetaminophen 5 mg-325 1 tab PO TID PRN pain #70 tabs 01/27/25 Unknown mg tablet (Percocet) alprazolam 0.5 mg tablet 0.5 mg PO TID anxiety #90 tabs 01/28/25 Unknown Past Medical History Medical History (Updated 02/05/25 @ 15:41 by Rabia Rutledge PA-C) Anemia Asthma controlled, stable per pt; last albuterol inhaler use several months ago Chronic back pain SHIVANI III (cervical intraepithelial neoplasia grade III) with severe dysplasia GERD (gastroesophageal reflux disease) controlled, stable per pt History of prediabetes Hypertension controlled, stable per pt Hypothyroidism IBS (irritable bowel syndrome) Migraine Osteoarthritis Overactive bladder Severe anxiety Severe depression denies SI or HI Sleep apnea severe>no device Patient denies h/o stroke, seizures, heart attack, heart failure, blood clots/DVTs or blood transfusions. Exercise / Class Metabolic Activity III < 4 Walking/Shop/Light housework (denies chest discomfort or shortness of breath with usual activities; less than 8 steps in home) Past Family History Family History Mother Diabetes Hypertension Family history of reaction to anesthesia difficult waking Family hx colonic polyps Grandmother (Paternal) Breast cancer Aunt Breast cancer Maternal Family/Other Ovarian cancer, Onset Age: 42 Denies family history of Prostate cancer Myocardial infarction Colorectal cancer Uterine cancer Past Surgical History Surgical History H/O colonoscopy with polypectomy History of anesthesia reaction "takes a lot to put me out and Slow to wake" History of carpal tunnel surgery of right wrist History of colposcopy with cervical biopsy History of esophagogastroduodenoscopy (EGD) History of laminectomy lumbar History of loop electrical excision procedure (LEEP) 2006, CIN3 History of open reduction and internal fixation (ORIF) procedure Left ankle x2 (+ hardware) History of spinal fusion (1999) lumbar>anterior approach History of tonsillectomy and adenoidectomy History of tooth extraction Nausea and vomiting after administration of anesthetic agent with spinal fusion (anterior) Status post left knee replacement Left TKA (02/14/23): SAB at L3/4 (1 attempt) + regional at [facility] Past Anesthesia History Other (as above; mother also needing additional medication to be put under and slow to wake) History of PONV History of PONV and Hx of Motion Sickness Social History Smoking Status: Current every day smoker tobacco type: cigarettes Smoking cigarettes per day: 20 cigs/day>advised Do You Dip or Chew Tobacco: No Hx Alcohol Use: No substance use type: does not use Review of Systems Patient denies chest pain, shortness of breath, dyspnea on exertion, fever, chills, cough, wheezing, or palpitations. Physical Exam Vital Signs Vitals BP 123/79 P 79 TEMP 99.1 SP02 97% on RA RESP 18 Physical Patient resting comfortably in chair in no acute distress, alert and oriented, responding appropriately throughout visit; non-diaphoretic Full cervical extension range of motion without pain TMD < 3 finger breadths Mallampati Score 3 Dentition: intact, denies chipped or loose teeth, caps/crowns, implants or bridges Lungs: normal respiratory effort. Good air movement, clear throughout to auscultation, no adventitious breath sounds Cardiac: regular rate and rhythm, no murmurs noted Carotid arteries: negative bruit bilat Lab Results Anesthesia Preop Results Results Anesthesia Widget: WBC 8.76 K/ul (4.8-10.8) 02/05/25 Hgb 13.9 g/dl (12.0-16.0) 02/05/25 Hct 39.6 % (37.0-47.0) 02/05/25 Plt 300 K/uL (130-400) 02/05/25 Na 136 mmol/L (136-145) 02/05/25 K 4.0 mmol/L (3.5-5.1) 02/05/25 Cl 104 mmol/L (98-107) 02/05/25 CO2 26 mmol/L (21-32) 02/05/25 BUN 6 mg/dl (6-23) 02/05/25 Creat 0.76 mg/dl (0.6-1.2) 02/05/25 Glucose Level 83 mg/dl (70-99(Fasting)) 02/05/25 PT 10.5 Seconds (9.0-12.0) 02/05/25 PTT 27 Seconds (21-31) 02/05/25 INR 1.0 (0.9-1.1) 02/05/25 TSH 1.626 uIu/ml (0.300-4.500) 02/05/25 Free T4 1.03 ng/dl (0.61-1.60) 02/05/25 HA1c 5.2 % (4.5-5.6) 02/05/25 Blood Type O Positive 02/05/25 Antibody Screen NEGATIVE 02/05/25 Testing Electrocardiogram Date: 02/05/25 NSR, rate 83 bpm Rightward axis No significant change vs 03/18/23 EKG Other Testing Abdomen pelvis CT 07/30/24 1. There is no airspace consolidation or pleural effusion. 2. There are numerous (greater than 30) subcentimeter pulmonary nodules scatt ered throughout both lungs. The basilar nodules are similar to 06/30/[address] and are not highly suspicious. Consider follow-up as per reflector criteria. See below.
[~2025-03-04 10:52] MED LIST changes: -DEXAMETHASONE SOD INJ 4 MG/ML VIAL ONE; -EPINEPHrine INJ 1 MG/ML AMP ONE; -FAMOTIDINE 20 MG TAB PO SCH; -GABAPENTIN 600 MG DOSE PO SCH; -LR 500ML BOLUS, THEN 15ML/HR IV SCH; -LR 60ML/HR IV SCH; -ORTHO JOINT MIX INFIL SCH; +PROPOFOL IV EMULSION 10 MG/ML 100 ML VIAL IV ONE; -TRANEXAMIC ACID 1,000 MG **IV Intra-op IV SCH; -TRANEXAMIC ACID 1,000 MG **IV Pre-op IV SCH; -ceFAZolin 2000MG 2,000 MG/15 ML SYR IV SCH; -dexAMETHasone 4 MG TAB PO SCH
[2025-03-04] MEDS ORDERED: MIDAZOLAM HCL 1 MG/ML 2ML VIAL ONE ×2 (11:02→12:01)
[2025-03-04] MEDS: LR 500ML BOLUS, THEN 15ML/HR IV SCH (11:08)
[2025-03-04] MEDS: LR 60ML/HR IV SCH (11:08)
[2025-03-04] MEDS: FAMOTIDINE 20 MG TAB PO SCH (11:09)
[2025-03-04] MEDS: ACETAMINOPHEN 500 MG TAB PO SCH ×2 (11:09→22:51)
[2025-03-04] MEDS: dexAMETHasone**PF** 10 MG/ML VIAL IV SCH (11:09)
[2025-03-04] MEDS: GABAPENTIN 900 MG DOSE PO SCH (11:10)
[2025-03-04] MEDS ORDERED: ePHEDrine sulfate 50 MG/ML AMP IV PRN (11:13)
[2025-03-04] MEDS ORDERED: PROMETHAZINE HCL 6.25 MG in SODIUM CHLORIDE 0.9% 50 ML IV PRN (11:13)
[2025-03-04] MEDS ORDERED: ONDANSETRON INJ 2 MG/ML 2 ML VIAL IV PRN ×2 (11:13→16:16)
[2025-03-04] MEDS ORDERED: fentaNYL citrate PF 100 MCG/2 ML VIAL IV PRN (11:13)
[2025-03-04] MEDS ORDERED: ATROPINE SULFATE 0.1 MG/ML 10ML SYR IV PRN (11:13)
[2025-03-04] MEDS: TRANEXAMIC ACID 1,000 MG **IV Pre-op IV SCH (12:07)
--- NOTE | 2025-03-04 12:27 | History & Physical Bridge Note ---
Date of Service March 04, 2025 History & Physical Bridge Note I have examined the patient, reviewed the History & Physical and in the interval since the performance of the History & Physical I have noted the following changes of clinical significance: no changes noted
[2025-03-04] MEDS: ceFAZolin 2000MG 2,000 MG/15 ML SYR IV SCH (12:32)
[2025-03-04] MEDS: ORTHO JOINT ANESTHETIC ONE (12:55)
[2025-03-04] MEDS: ROPIV 0.5% 246mg, Ketorolac 30mg, EPINEPHrine 0.5mg in NSS INFIL SCH (12:55)
[2025-03-04] MEDS ORDERED: KETAMINE HCL 10MG/ML SYR ONE (13:01)
[2025-03-04] MEDS ORDERED: ONDANSETRON INJ 2 MG/ML 2 ML VIAL ONE (13:02)
[2025-03-04] MEDS: TRANEXAMIC ACID 1,000 MG **IV Intra-op IV SCH (13:37)
--- NOTE | 2025-03-04 13:47 | Operative Report ---
PG Post Operative Report Pre & Post Diagnosis Operation Date: 03/04/25 12:00 Pre-Op Diagnosis: Painful Left Unicompartment Knee Arthroplasty Post-Op Diagnosis: Painful Left Unicompartment Knee Arthroplasty with lateral compartmental and patellofemoral arthritis I identified the patient and participated in the time-out.: Yes Procedure Operation Date: 03/04/25 12:00 Actual Procedures p Revision Left Unicompartment Knee Arthroplasty to Left Total Knee Arthroplasty(Left) - Mk Bright DO Surgeon Mk Bright DO Piercing Mill Operator Yuan Oliveros PA-C Estimated Blood Loss 50 Findings Consistent with Post-Op Diagnosis Specimens Left femoral and tibial bone Description of Procedure Implants used: I used a Anna Persona total knee arthroplasty system with a size 5 narrow PS femur, C tibia, 28 oval patella, and a size 16 CPS polyethylene bearing. All components were cemented in place with Biomet cement. Christi arrived [facility] for the above procedure. She was seen in the preoperative holding area and the operative extremity was identified and signed. She was given a preoperative antibiotic, TXA, a spinal anesthetic and an adductor nerve block. She was taken back to the operating room and laid on the table in supine position. She was given basic sedation. The operative knee was then prepped and draped in sterile fashion. A timeout was done, and the patient and the operative extremity was properly identified. A midline incision was made directly over the patella. Dissection was taken down to the extensor mechanism. A medial parapatellar arthrotomy was used. The medial retinaculum was released and the fat pad was mostly excised. The knee was flexed and the ACL, PCL, and meniscus were removed. The unicompartmental components were easily identified. The polyethylene insert was then removed. The femoral component was well-fixed and removed with an artist and chisel in a saw. The tibial component seem to be depressed in the front, however it was not grossly loose. I was able to remove the tibial component fairly easily with very little bone loss. Once the components were removed, a drill was sent down the center of the femoral canal followed by an intramedullary vanessa. Off that vanessa a distal femoral cutting block was placed. 9 mm was resected off the distal femur at 5 of valgus. A posterior referencing AP sizing guide was then placed on the distal femur. The femur measured to be a size 5. 2 drill holes were placed in 3 of external rotation. A 4-in-1 cutting block was then impacted into place. Anterior, posterior, and chamfer cuts were then made. The proximal tibia was then exposed. An external tibial alignment guide was placed. A tibial cut guide was then anchored in place and the proximal tibia was then resected. The posterior aspect of the knee was then opened up and any additional meniscus fragments and osteophytes were removed. The tibia measured to be a size C. The tibial plate was then placed in the appropriate rotation and the tibia was drilled and punched. Trial components were then placed. I used a size 16 CPS polyethylene insert. The knee was brought through a full range of motion and felt to be stable. The peg holes for the femoral component were then drilled. The patella was then everted and 9 mm was resected off the posterior aspect of the patella. The patella measured to be a size 28 oval. 3 peg holes were then drilled. A trial patella was placed. The knee was once again brought through a full range of motion and felt to be stable. Trial components were then removed. The surrounding soft tissues were injected with 100 cc of an orthopedic pain control cocktail. All components were then cemented into place with Biomet cement. The final polyethylene insert was then snapped into place. Once cement was dry the tourniquet was deflated. Hemostasis was obtained. A dilute betadyne lavage was then done for 3 minutes. The joint was then irrigated with normal saline solution. The medial parapatellar arthrotomy was then closed with #1 Vicryl suture. The skin was closed with 2-0 Vicryl, 3-0V lock suture, and antelmo. A soft compressive dressing was placed. She was then transferred to a hospital bed and taken to the postanesthesia care unit in stable condition. She tolerated the procedure well. Yuan Oliveros PA-C, was present for the entire procedure. He was critical for patient positioning, prepping, draping, retraction exposure, wound closure and application of sterile dressing. I attest to the content of the Intraoperative Record and any orders documented therein. Any exceptions are noted below.
--- NOTE | 2025-03-04 14:32 | XRay Report ---
XR knee LT 1 or 2V routine CLINICAL HISTORY: Surgical Post Op COMPARISON: 02/14/2023 FINDINGS: Left knee prosthesis shows no hardware complication. There is expected soft tissue gas. IMPRESSION: Unremarkable postoperative exam. ACT 112: Negative or not required by law. Electronically signed by: Evelio Subramanian M.D. 03/04/2025 2:31 PM
--- NOTE | 2025-03-04 16:01 | Anesthesiology Progress Note ---
Date of Service March 04, 2025 Anesthesia Post Procedure Vital Signs Vital Signs: Temp Pulse Pulse Resp BP Pulse Ox O2 Del Method 03/04/25 15:45 36.6 C 87 13 114/79 95 Nasal Cannula 03/04/25 15:30 91 H 17 125/71 92 Room Air 03/04/25 15:15 89 19 129/76 90 Room Air 03/04/25 15:00 88 18 135/79 97 Room Air 03/04/25 14:50 78 15 136/77 97 Room Air 03/04/25 14:40 76 13 134/80 99 Oxymask 03/04/25 14:30 78 13 127/87 99 Oxymask 03/04/25 14:20 75 15 142/85 H 100 Oxymask 03/04/25 14:11 36.3 C L 84 17 139/83 98 Oxymask 03/04/25 10:58 37 C 89 20 132/85 100 Room Air O2 Flow Rate 03/04/25 15:45 2 03/04/25 15:30 03/04/25 15:15 03/04/25 15:00 03/04/25 14:50 03/04/25 14:40 4 03/04/25 14:30 4 03/04/25 14:20 7 03/04/25 14:11 7 03/04/25 10:58 Pain Intensity Bilateral Head: Pain Intensity: 8 Left Knee: Pain Intensity: 2 Transfer of Care Handoff Completed per policy Notes Mental Status: alert / awake / arousable and participated in evaluation Patient Amnestic to Procedure: Yes Nausea / Vomiting: adequately controlled Pain: adequately controlled Airway Patency, RR, SpO2: stable & adequate BP & HR: stable & adequate Hydration State: stable & adequate Neuraxial Anesthesia: was administered and sensory block is resolving Anesthetic Complications: no major complications apparent and Pt Satisfied with anesthetic care
[2025-03-04] MEDS ORDERED: bisacodyL 10 MG SUPP PR PRN (16:16)
[2025-03-04] MEDS ORDERED: NALOXONE HCL 0.4 MG/1 ML VIAL/CARP IV PRN (16:16)
[2025-03-04] MEDS ORDERED: MAGNESIUM HYDROXIDE SUSP 30 ML UDC PO PRN (16:16)
[2025-03-04] MEDS ORDERED: HYDROmorphone INJ 0.5 MG/0.5 ML SYR IV PRN (16:16)
[2025-03-04] MEDS: SODIUM CHLORIDE 0.9% 1,000 ML IV SCH (16:34)
[2025-03-04] MEDS: KETOROLAC TROMETHAMINE 15 MG/ML VIAL IV SCH (16:34)
[2025-03-04 19:08] VITALS: RESP 16
[2025-03-04] MEDS: oxyCODONE HCL IR 5 MG TAB (IMMEDIATE RELEASE) PO PRN (19:12)
[2025-03-04] MEDS: ALPRAZolam 0.5 MG TABLET PO SCH (20:46)
[2025-03-04] MEDS: SENNA 8.6 MG TAB PO SCH (20:46)
[2025-03-04] MEDS: ceFAZolin 1000MG 1,000 MG/7.5 ML SYR IV SCH (20:46)
[2025-03-04] MEDS: ASPIRIN 81 MG ECTAB PO SCH (20:47)
[2025-03-04] MEDS: busPIRone 5 MG TAB PO SCH (20:48)
[2025-03-04] MEDS: DOCUSATE SODIUM 100 MG CAP PO SCH (20:49)
[2025-03-04] MEDS: METOCLOPRAMIDE HCL INJ 5 MG/ML 2 ML VIAL IV PRN (22:51)
[2025-03-05 02:53] VITALS: PULSE 78; TEMP 98.2; O2SAT 99
[2025-03-05] MEDS: LEVOTHYROXINE SODIUM 50 MCG TABLET PO SCH (05:16)
[2025-03-05] MEDS: PANTOprazole 40 MG TAB PO SCH (07:27)
[2025-03-05] MEDS: dexAMETHasone 4 MG TAB PO SCH (07:28)
[2025-03-05] MEDS: buPROPion XL 150 MG TABCR PO SCH (07:28)
[2025-03-05] MEDS: MULTIVITAMIN TAB PO SCH (07:28)
[2025-03-05] MEDS: LOSARTAN POTASSIUM 25 MG TAB PO SCH (07:29)
[2025-03-05] MEDS: DULoxetine HCL 60 MG CAP PO SCH (07:29)
[2025-03-05 07:35] VITALS: BP 127/77
--- NOTE | 2025-03-05 12:59 | Orthopedic Progress Note ---
Date of Service March 05, 2025 Assessment & Plan (1) Status post left knee replacement: Assessment: Status post revision left unicompartmental knee arthroplasty to left total knee arthroplasty. Plan: Overall, she is doing quite well today with good pain control the left knee. She will work with physical therapy later this morning to work on ambulation range of motion exercises. She was started on aspirin for DVT prophylaxis. She can be discharged home later this morning pending formal physical therapy evaluation recommendation. Her dressing should be changed prior to discharge today and after she completes physical therapy. Discharge medication were discussed with the patient in its entirely with verbal understanding. She will follow-up with orthopedics in 2 to 3 weeks for continued postoperative management or sooner if needed. Subjective . Christi was seen and evaluated this morning resting comfortably in no apparent distress. She notes that her pain is well-controlled to the left knee. She has been up and out of bed with no significant issues today. She has yet to work physical therapy today. She denies any concerns with her surgical incision site. She denies any active bleeding, discharge, or signs infection. She denies any other concerns today. Review of Systems All systems reviewed & are unremarkable except as noted in HPI & below. Physical Exam . On physical examination of the left knee, the dressings are clean, dry, intact with no signs of active bleeding, discharge, or signs infection. Her leg is on full extension. She has limited range of motion strength secondary to postoperative stiffness soreness. Calf soft nontender to palpation. Negative Homans' sign. Intact plantarflexion and dorsiflexion of left ankle. +2 DP and PT pulse. Less than 2-second capillary refill. Normal sensation. Neurovascular intact. Results & Data Results & Data Laboratory Results . Diagnostic Findings . Knee X-Ray 03/04/25 14:15 XR knee LT 1 or 2V routine CLINICAL HISTORY: Surgical Post Op COMPARISON: 02/14/2023 FINDINGS: Left knee prosthesis shows no hardware complication. There is expected soft tissue gas. IMPRESSION: Unremarkable postoperative exam. ACT 112: Negative or not required by law. Electronically signed by: Evelio Subramanian M.D. 03/04/2025 2:31 PM PG Care Time/CCT Total # of Minutes Spent Total Time Spent with Patient: Total time spent is greater than 50% in coordination of care (as documented) at patient's floor/unit and/or counseling patient: Coding Level of Care Code 80467 Post Operative Follow-Up Diagnoses Status post left knee replacement Z96.652
--- NOTE | 2025-03-05 13:02 | Discharge Summary ---
Date of Service March 05, 2025 Principal Diagnosis Same as "Discharge Diagnosis" noted below under Discharge Instructions. Discharge Exam . On physical examination of the left knee, the dressings are clean, dry, intact with no signs of active bleeding, discharge, or signs infection. Her leg is on full extension. She has limited range of motion strength secondary to postoperative stiffness soreness. Calf soft nontender to palpation. Negative Homans' sign. Intact plantarflexion and dorsiflexion of left ankle. +2 DP and PT pulse. Less than 2-second capillary refill. Normal sensation. Neurovascular intact. Discharge Data Procedures Performed Operation Date: 03/04/25 12:00 Actual Procedures p Revision Left Unicompartment Knee Arthroplasty to Left Total Knee Arthroplasty(Left) - Mk Bright DO Ordered Studies 03/04/25 05:00 US - OR guided needle placemen Routine Hospital Course (1) Painful total knee replacement, left: On March 04, 2025 Christi arrived at [facility] and underwent a revision left unicompartmental knee arthroplasty to the left total knee arthroplasty performed by Dr. Bright with no complications. She had a spinal anesthetic. Postoperatively, she was started on aspirin for DVT prophylaxis and transferred to the general orthopedic floor in stable condition. Her hospital course was uneventful. On postoperative day #1, her vital signs were stable and her pain is well-controlled. She participated well with physical therapy working on ambulation and range of motion exercises. She was then discharged home in stable condition. She will follow-up with orthopedics in 2 to 3 weeks for continued postoperative management or sooner if needed. PG Care Time/CCT Total # of Minutes Spent Total Time Spent with Patient: Total time spent is greater than 50% in coordination of care (as documented) at patient's floor/unit and/or counseling patient: Discharge Plan Discharge Items Patient Disposition: Home - Self-Care Reason For Visit: Painful Left Unicompartment Knee Arthroplasty Discharge Diagnosis: Same Activity: Per Instructions section Non-emergency contact: Surgeon Call non-emergency contact if: your temperature is above 101.5, your wound has increased redness, your wound has increased drainage and your wound pain has increased Follow-up/Referrals: Mary Carmen Siddiqui MD [Primary Care Provider] - Diet: Regular Addtl Attending Provider Instructions: Activity and Therapy Recommendations: * If you are using [facility] then therapy will be provided at your home until they feel you have accomplished all of your goals. * If you are using [facility] then Physical Therapy will be provided until they feel you are ready to start Outpatient Physical Therapy. * If you are not using home therapy then Outpatient Physical Therapy should start about 3-5 days from your day of surgery. Therapy will last about 6-10 weeks * It is important not to put a pillow under your knee when you are relaxing or sleeping. It is just as important to make sure you are getting your knee perfectly straight as it is to regain your knee bend. * You were shown a series of exercises in the hospital. Do these exercises three times each day including the exercises you were shown in physical therapy. * Get up and walk several times each day. For the first four weeks, try not to stand or walk for more than one hour at a time. If you do stand or walk for more than one hour, you will not hurt anything, but your leg will likely swell. * As you feel comfortable, you may change from the walker or crutches to a cane and then to independent walking. Medications: * Narcotic You will likely be sent home from the hospital with a prescription for the narcotic pain medication that worked best throughout your stay. * Cefadroxil -take the antibiotic twice a day for 10 days to help prevent infection. * Aspirin Most patients will be required to take Aspirin 81mg twice a day for 6 weeks after surgery. This is obtained [id number] and a prescription is not necessary. * Other medications may be prescribed for specific circumstances. If you have any questions, please call the office at . * Resume previous home medications unless otherwise instructed TEDs/Elastic Stockings: The white elastic stockings help limit swelling and prevent blood clots from forming in your legs.~ The more you wear them, the more they work. Wear them for 2 weeks. Dressing Care: The dressing can be changed after physical therapy on postop day #1. Do not peel off the Nathaniel zip skin closure. This is to be left on for 2 to 3 weeks. Daily dry dressing changes for a few days, especially if the incision is still draining some. If the incision is not draining then you may leave the [place] zip skin closure open to air If there is a little bit of drainage or if the zip skin closure is getting stuck on your clothing then cover the incision with a dry dressing. The Nathaniel zip skin closure will be removed at your 2 week follow-up appointm ent. Showering: You may shower 5 days from the day of surgery as long as the incision is no longer draining. You may shower with the Nathaniel zip skin closure exposed. Let soapy water run over the [place] zip skin closure and pat it dry. Do not scrub or soak the incision. Diet: You may resume your previous diet. Things To Watch For: * Drainage from the incision site that occurs more than one week after your surgery. * Increased redness at the incision site. * Fever above 102 degrees Fahrenheit. * Unusual chest pain or shortness of breath. * Call [facility] at with any of the above problems Follow-Up Visit: Follow-up with Dr. Bright's office 2-3 weeks after your day of surgery. We will remove your antelmo and answer any questions. If you have any additional questions or concerns, Dr Bright is usually in the office at the same time and will be available An appointment was probably scheduled when you signed-up for surgery in the office. If you have any questions call Office Instructions: More detailed instructions as well as Frequently Asked Questions were provided in a folder by our office when you signed-up for surgery. Please review these instructions when you get home. If you have any further questions or concerns, please feel free to call the office at [phone] Pending Studies at Discharge: No Stand-Alone Forms: [facility], Smoking Cessation Medications and DC Order Prescriptions: New aspirin 81 mg Tablet,Delayed Release (Dr/Ec) 81 mg PO BID 42 Days Qty: 0 0RF cefadroxil 500 mg capsule 500 mg PO BID 10 Days Qty: 20 0RF oxycodone 5 mg tablet 5 mg PO Q6H PRN (Reason: pain) Qty: 30 0RF Continued bupropion HCl 150 mg tablet extended release 24 hr 150 mg PO QAM Qty: 90 3RF duloxetine 60 mg capsule,delayed release(DR/EC) 60 mg PO QAM Qty: 30 11RF potassium chloride 10 mEq capsule, extended release See Rx Instructions .ROUTE .COMPLEX Qty: 60 5RF Dose Instruction: TAKE TWO CAPSULES BY MOUTH EVERY DAY Rx Instructions: TAKE TWO CAPSULES BY MOUTH EVERY DAY mirabegron [Myrbetriq] 50 mg tablet extended release 24 hr See Rx Instructions .ROUTE .COMPLEX Qty: 90 1RF Dose Instruction: TAKE ONE TABLET BY MOUTH ONE TIME DAILY IN THE EVENING Rx Instructions: TAKE ONE TABLET BY MOUTH ONE TIME DAILY IN THE EVENING norethindrone (contraceptive) 0.35 mg tablet 0.35 mg PO QAM Qty: 84 2RF Rx Instructions: Take one pill daily at same time each day. Use backup if taken >3hrs late levothyroxine 50 mcg tablet See Rx Instructions .ROUTE .COMPLEX Qty: 30 11RF Dose Instruction: TAKE ONE TABLET BY MOUTH EVERY DAY Rx Instructions: TAKE ONE TABLET BY MOUTH EVERY DAY omeprazole 40 mg capsule,delayed release(DR/EC) See Rx Instructions .ROUTE .COMPLEX Qty: 30 5RF Dose Instruction: TAKE ONE CAPSULE BY MOUTH EVERY DAY Rx Instructions: TAKE ONE CAPSULE BY MOUTH EVERY DAY buspirone 10 mg tablet 10 mg PO BID Qty: 180 1RF albuterol sulfate 90 mcg/actuation HFA aerosol inhaler 2 inh inhalation Q6H PRN (Reason: shortness of breath or wheezing) Qty: 8.5 3RF alprazolam 0.5 mg tablet 0.5 mg PO TID Qty: 90 0RF triamcinolone acetonide 0.1 % cream 1 applic topical BID Qty: 15 1RF Rx Instructions: Use for no longer than 2 wks. losartan 25 mg tablet 25 mg PO QAM Qty: 90 0RF ferrous sulfate 325 mg (65 mg iron) Tablet 325 mg PO QAM multivitamin [Multiple Vitamins] Tablet 1 tab PO QAM Probiotic 2 cap PO QAM cholecalciferol (vitamin D3) [Vitamin D3] 125 mcg (5,000 unit) Tablet 125 mcg PO QAM Held diclofenac sodium 75 mg tablet,delayed release (DR/EC) 75 mg PO BID PRN (Reason: pain) Qty: 60 5RF Hold Instructions: Resume on 04/17/25. Discontinued oxycodone-acetaminophen [Percocet] 5-325 mg tablet 1 tab PO TID PRN (Reason: pain) Qty: 70 0RF Discharge Orders: Discharge Order (Routine); Ordered 03/05/25 Ordered By: Doyle Oliveros Admission Data Admit Date/Time: 03/04/25 14:15 Attending Provider: Mk Bright Admit Provider: Mk Bright Primary Care Provider: Mary Carmen Siddiqui Other Interventions: Discharge Summary Assessment (RN) Last Done: 03/05/25 10:18
[2025-03-05] MEDS ORDERED: VIBEGRON 75 MG TAB PO SCH (21:00)
== END 2025-03-05 11:49 | disposition home or self-care (01) | DRG 468 ==
LOC: ASU 10:52 → 3N 14:15